=== PATIENT | female | born 1985 | race Caucasian/White ===

== ENCOUNTER → 2016-08-09 | Outpatient (CLI) | payer OTHER ==
--- NOTE | 2016-08-09 10:09 | US ---
EXAMINATION TYPE: US thyroid st tissue head/neck DATE OF EXAM: 08/09/2016 9:59 AM COMPARISON: NONE CLINICAL HISTORY: Pt states enlarged thyroid on Dr's examination GLAND SIZE: Right Lobe: 2.5 x 0.9 x 1.3 cm Overall Parenchyma: Slightly heterogenous Left Lobe: 2.6 x 0.7 x 1.0 cm Overall Parenchyma: Slightly heterogeneous Isthmus Thickness: 0.2 cm NODULES RIGHT: # of nodules measured on right: 0 LEFT: # of nodules measured on left: 0 ISTHMUS: # of nodules measured in the isthmus: 0 TECHNOLOGIST IMPRESSION: Bilateral neck scanned, no abnormal lymphadenopathy noted. Bilateral thyroid small in size and heterogeneous with no definite nodules visualized IMPRESSION: Thyroid gland is actually small in size, no worrisome solid or cystic nodules are identified chica pete
== END | disposition home or self-care (01) ==
LOC: RADUSWWP 09:45
PROVIDERS: ATTEND Family Medicine
DX: R94.6 Abnormal results of thyroid function studies (principal)
CPT/HCPCS: 76536

== ENCOUNTER → 2017-11-06 | Outpatient (CLI) | payer SELFPAY ==
--- NOTE | 2017-11-06 11:49 | MM ---
Reason for exam: clinical finding. Baseline mammogram. Indicated problem(s): palpable abnormality in the right breast. Physical Findings: Nurse did not find any significant physical abnormalities on exam. MG 3D Diag Mammo W/Cad SHERRIE Bilateral CC and MLO view(s) were taken. There are scattered fibroglandular densities. There is no discrete abnormality including area of concern. These results were verbally communicated with the patient and result sheet given to the patient on 11/06/17. ASSESSMENT: Negative, BI-RAD 1 RECOMMENDATION: Ultrasound of the right breast.
--- NOTE | 2017-11-06 11:50 | USB ---
Reason for exam: clinical finding. US Breast RT Right breast ultrasound includes all four quadrants, the retroareolar region and axilla. Finding demonstrates no cystic or solid lesion seen. These results were verbally communicated with the patient and result sheet given to the patient on 11/06/17. ASSESSMENT: Negative, BI-RAD 1 RECOMMENDATION: Routine screening mammogram of both breasts at age 39. Manage patient on a clinical basis.
== END | disposition home or self-care (01) ==
LOC: RADMAMWWP 08:46
PROVIDERS: ATTEND Family Medicine
DX: N64.4 Mastodynia (principal)
CPT/HCPCS: 77066; 76641; G0279

== ENCOUNTER → 2018-01-23 | Outpatient (CLI) | payer OTHER ==
--- NOTE | 2018-01-23 11:34 | XR ---
EXAMINATION TYPE: XR hand limited bilateral DATE OF EXAM: 01/23/2018 CLINICAL HISTORY: Pain TECHNIQUE: Frontal, lateral and oblique images of the bilateral hands are obtained. COMPARISON: None. FINDINGS: There is no acute fracture/dislocation evident. The joint spaces in the bilateral hands a ppear within normal limits. The overlying soft tissue appears unremarkable. IMPRESSION: There is no acute fracture or dislocation.
== END | disposition home or self-care (01) ==
LOC: RADXRMAIN 11:04
PROVIDERS: ATTEND Family Medicine
DX: M79.641 Pain in right hand (principal); M79.642 Pain in left hand

== ENCOUNTER → 2018-06-04 | Outpatient (CLI) | payer OTHER ==
[~2018-06-04] MED LIST: TUBERCULIN PPD (SKIN TEST) 5 UNIT/0.1 ML (MDV) VIAL INTRADERMA NR
[2018-06-04 11:18] VITALS: BP 115/96; PULSE 79; RESP 18; TEMP 97.6
== END ==
LOC: PROCWHC3 10:40
PROVIDERS: ATTEND Internal Medicine Rheumatology
DX: M05.79 Rheumatoid arthritis with rheumatoid factor of multiple sites without organ or systems involvement (principal)
CPT/HCPCS: 86580

== ENCOUNTER → 2018-06-04 | Outpatient (CLI) | payer OTHER ==
[2018-06-04 10:18] LABS: Basophils % (A) 0 %; Eosinophils # (A) 0.1 k/uL (0-0.7); Eosinophils % (A) 2 %; HCT 34.1 % (34.0-46.0); HGB 10.7 gm/dL (11.4-16.0); Hypochromasia Slight; Lymphocytes % (A) 18 %; MCH 26.7 pg (25.0-35.0); MCHC 31.4 g/dL (31.0-37.0); MCV 85.2 fL (80.0-100.0); Mean Platelet Volume 7.3; Monocytes # (A) 0.4 k/uL (0-1.0); Monocytes % (A) 7 %; Neutrophils % (A) 72 %; Platelet Count 263 k/uL (150-450); RDW 15.7 % (11.5-15.5); WBC 5.5 k/uL (3.8-10.6)
[2018-06-04 16:31] LABS: Albumin 4.1 g/dL (3.80-4.90); Albumin/Globulin Ratio 1.71 (1.20-2.10); Anion Gap 4.3 mmol/L (4.00-12.00); Calcium 8.9 mg/dL (8.7-10.3); Carbon Dioxide 23.7 mmol/L (21.6-31.8); Globulin 2.4 g/dL (2.1-3.7); Potassium 4.3 mmol/L (3.5-5.5); Total Bilirubin 0.2 mg/dL (0.2-1.2); Total Protein 6.5 g/dL (6.2-8.2); Uric Acid 4.2 mg/dL (2.9-7.7)
[2018-06-04 16:32] LABS: Thyroid Peroxidase Antibodies 40.3 U/mL (0.0-60.0); Vitamin D 25 Hydroxy 20.1 ng/mL (30.0-100.0)
[2018-06-04 16:54] LABS: T4, Free (Free Thyroxine) 0.7 ng/dL (0.80-1.80)
[2018-06-04 18:26] LABS: Hemoglobin A1C 5.6 % (4.0-6.0)
[2018-06-05 10:58] LABS: Casein IgE Class CLASS 0
== END ==
LOC: LABWHC1 08:50
PROVIDERS: ATTEND Family Medicine
DX: E03.9 Hypothyroidism, unspecified (principal); M79.7 Fibromyalgia; M12.89 Other specific arthropathies, not elsewhere classified, multiple sites; E55.9 Vitamin D deficiency, unspecified; E07.9 Disorder of thyroid, unspecified; R53.82 Chronic fatigue, unspecified; R73.01 Impaired fasting glucose
CPT/HCPCS: 36415; 80053; 82306; 82465; 82728; 83036; 84439; 84481; 84482; 84550; 85025; 86001; 86003; 86376; 86738; 86800

== ENCOUNTER → 2018-12-15 | Outpatient (CLI) | payer OTHER | END | disposition home or self-care (01) | LOC: LABWHC1 07:59 | PROVIDERS: ATTEND Family Medicine | DX: E27.1 Primary adrenocortical insufficiency (principal) | CPT/HCPCS: 36415; 82024; 82533 ==

== ENCOUNTER 2019-08-23 18:56 | Emergency (ER) | payer OTHER ==
[2019-08-23 19:02] VITALS: TEMP 97.9
[2019-08-23] MEDS ORDERED: SODIUM CHLORIDE 0.9% 1,000 ML IV STA (19:10)
[2019-08-23] MEDS ORDERED: MECLIZINE 12.5 MG TAB PO STA (19:10)
[2019-08-23] MEDS ORDERED: ONDANSETRON 4 MG/2 ML VIAL IVP STA (19:10)
[2019-08-23 19:41] LABS: Basophils # (A) 0.1 k/uL (0-0.2); Basophils % (A) 2 %; Eosinophils % (A) 1 %; HCT 36.5 % (34.0-46.0); HGB 12.2 gm/dL (11.4-16.0); Lymphocytes # (A) 0.2 k/uL (1.0-4.8); Lymphocytes % (A) 8 %; MCH 29.5 pg (25.0-35.0); MCHC 33.4 g/dL (31.0-37.0); MCV 88.2 fL (80.0-100.0); Mean Platelet Volume 8.1; Monocytes # (A) 0.4 k/uL (0-1.0); Monocytes % (A) 14 %; Neutrophils # (A) 2.1 k/uL (1.3-7.7); Neutrophils % (A) 72 %; Platelet Count 164 k/uL (150-450); RBC 4.14 m/uL (3.80-5.40); RDW 13.3 % (11.5-15.5); WBC 2.9 k/uL (3.8-10.6)
[2019-08-23 19:45] LABS: Appearance,Urine Cloudy (Clear); Bilirubin,Urine Negative (Negative); Blood,Urine Negative (Negative); Color,Urine Yellow; Glucose,Urine (UA) Negative (Negative); Hyaline Casts,Urine 2 /lpf (0-2); Ketones,Urine Negative (Negative); Leukocyte Esterase,Urine Moderate (Negative); Mucus,Urine Many /hpf; Nitrite,Urine Negative (Negative); PH, Urine 5.5 (5.0-8.0); Protein,Urine 1+ (Negative); RBC,Urine 4 /hpf (0-5); Specific Gravity,Urine 1.032 (1.001-1.035); Squamous Epithelial Cell,Urine 19 /hpf (0-4); Urobilinogen,Urine <2.0 mg/dL (<2.0); WBC,Urine 4 /hpf (0-5)
--- NOTE | 2019-08-23 19:48 | XR ---
EXAMINATION TYPE: XR chest 2V DATE OF EXAM: 08/23/2019 COMPARISON: NONE HISTORY: Chest pain TECHNIQUE: 2 views FINDINGS: Heart and mediastinum are normal. Lungs are clear. Diaphragm is normal. Bony thorax appears normal. IMPRESSION: Normal chest.
[2019-08-23 19:49] LABS: ALT 17 U/L (4-34); AST 23 U/L (14-36); African American GFR (CKD) >90 (>60 ml/min/1.73 sqM); Alkaline Phosphatase 99 U/L (38-126); Anion Gap 9 mmol/L; Blood Urea Nitrogen 15 mg/dL (7-17); Carbon Dioxide 20 mmol/L (22-30); Chloride 108 mmol/L (98-107); Glucose 100 mg/dL (74-99); Non-African American GFR(CKD) >90 (>60 ml/min/1.73 sqM); Potassium 4.3 mmol/L (3.5-5.1); Sodium 137 mmol/L (137-145); Total Bilirubin 0.3 mg/dL (0.2-1.3); Total Protein 7.2 g/dL (6.3-8.2)
[2019-08-23] MEDS ORDERED: NITROFURANTOIN MONOHYD/M-CRYST 100 MG CAP PO STA (20:02)
[2019-08-23 20:03] LABS: Amphetamine Screen,Urine Not Detected (NotDetected); Barbiturate Screen,Urine Not Detected (NotDetected); Benzodiazepines Screen,Urine Not Detected (NotDetected); Cocaine Screen,Urine Not Detected (NotDetected); Methadone Screen, Urine Not Detected (NotDetected); Opiate Screen,Urine Not Detected (NotDetected); Oxycodone Screen, Urine Not Detected (NotDetected); Phencyclidine Screen,Urine Not Detected (NotDetected); Tricyclic Antidepressant,Urine Not Detected (NotDetected); Urn Cannabinoid Scrn Detected (NotDetected)
--- NOTE | 2019-08-23 20:04 | ED ---
General Adult HPI - General Chief complaint: Dizziness Stated complaint: Dizzy, tightness in throat Time Seen by Provider: 08/23/19 19:03 Source: patient Mode of arrival: ambulatory Limitations: no limitations - History of Present Illness Initial comments: Patient states that she is not feeling well. She has no chest pain. She does have a cough. She has no focal weakness. She has no lightheadedness. She has no dizziness in terms a passing out, but does feel a little lightheaded. She has no change in vision or hearing. She has no pain or swelling in the arms or legs. She has no palpitations. She has had sick contacts at home. She has taken no medicine for her symptoms. She wasn't doing anything when she began to feel this way. - Related Data Home Medications Medication Instructions Recorded Confirmed Baclofen [Lioresal] 10 mg PO DAILY 06/04/18 06/04/18 Citalopram Hydrobromide [CeleXA] 60 mg PO DAILY 06/04/18 06/04/18 Ferrous Sulfate [Feosol] 325 mg PO BID 06/04/18 06/04/18 Folic Acid PO DAILY 06/04/18 HYDROcodone/APAP 5-325MG [Luckey 1 tab PO BID 06/04/18 06/04/18 5-325] Hydroxychloroquine Sulfate 400 mg PO DAILY 06/04/18 06/04/18 [Plaquenil] Meloxicam [Mobic] 15 mg PO DAILY 06/04/18 06/04/18 Methotrexate 0.8 ml INJ WEEKLY 06/04/18 06/04/18 Nadolol [Corgard] 10 mg PO DAILY 06/04/18 06/04/18 Thyroid,Pork [[employer] Thyroid 120] 90 mg PO DAILY 06/04/18 06/04/18 predniSONE 5 mg PO DAILY 06/04/18 06/04/18 Previous Rx's Medication Instructions Recorded Nitrofurantoin Monohyd/M-Cryst 100 mg PO Q12HR #14 cap 08/23/19 [Macrobid] Allergies Allergy/AdvReac Type Severity Reaction Status Date / Time No Known Allergies Allergy Verified 08/23/19 18:58 Review of Systems ROS Statement: Those systems with pertinent positive or pertinent negative responses have been documented in the HPI. ROS Other: All systems not noted in ROS Statement are negative. Past Medical History Past Medical History: Rheumatoid Arthritis (RA), Thyroid Disorder Additional Past Medical History / Comment(s): HX PALPITATIONS/AND 'SKIPS BEATS' History of Any Multi-Drug Resistant Organisms: None Reported Additional Past Surgical History / Comment(s): HX WISDOM TEETH REMOVED Past Psychological History: Anxiety, Depression Smoking Status: Never smoker Past Alcohol Use History: Rare Past Drug Use History: Marijuana - Past Family History Father Family Medical History: AFIB, Thyroid Disorder Mother Family Medical History: Thyroid Disorder General Exam Limitations: no limitations General appearance: alert, in no apparent distress Head exam: Present: atraumatic, normocephalic, normal inspection Eye exam: Present: normal appearance, PERRL, EOMI. Absent: scleral icterus, conjunctival injection, periorbital swelling ENT exam: Present: normal exam, mucous membranes moist Neck exam: Present: normal inspection. Absent: tenderness, meningismus, lymphadenopathy Respiratory exam: Present: normal lung sounds bilaterally. Absent: respiratory distress, wheezes, rales, rhonchi, stridor Cardiovascular Exam: Present: regular rate, normal rhythm, normal heart sounds. Absent: systolic murmur, diastolic murmur, rubs, gallop, clicks GI/Abdominal exam: Present: soft, normal bowel sounds. Absent: distended, ten derness, guarding, rebound, rigid Extremities exam: Present: normal inspection, full ROM, normal capillary refill. Absent: tenderness, pedal edema, joint swelling, calf tenderness Back exam: Present: normal inspection Neurological exam: Present: alert, oriented X3, CN II-XII intact Psychiatric exam: Present: normal affect, normal mood Skin exam: Present: warm, dry, intact, normal color. Absent: rash Course Vital Signs 08/23/19 18:59 Temperature 97.9 F Pulse Rate 122 H Respiratory 18 Rate Blood Pressure 110/65 O2 Sat by Pulse 98 Oximetry EKG Findings - EKG Comments: EKG Findings:: Twelve-lead EKG shows ventricular rate 105 bpm, normal MN interval and QRS complex is, no ST elevation or depression, interpreted by me as normal sinus rhythm. Medical Decision Making - Medical Decision Making Patient presented generally not feeling well. Her physical exam is unremarka ble. Her laboratory studies are within acceptable limits. She is feeling much better after IV fluids. Urinalysis was concerning for UTI, so she is started on antibiotic. Otherwise she is feeling much better and is stable for discharge. - Lab Data Result diagrams: 08/23/19 19:24 08/23/19 19:24 Lab Results 08/23/19 08/23/19 08/23/19 Range/Units 19:24 19:24 19:24 WBC 2.9 L (3.8-10.6) k/uL RBC 4.14 (3.80-5.40) m/uL Hgb 12.2 (11.4-16.0) gm/dL Hct 36.5 (34.0-46.0) % MCV 88.2 (80.0-100.0) fL MCH 29.5 (25.0-35.0) pg MCHC 33.4 (31.0-37.0) g/dL RDW 13.3 (11.5-15.5) % Plt Count 164 (150-450) k/uL Neutrophils % 72 % Lymphocytes % 8 % Monocytes % 14 % Eosinophils % 1 % Basophils % 2 % Neutrophils # 2.1 (1.3-7.7) k/uL Lymphocytes # 0.2 L (1.0-4.8) k/uL Monocytes # 0.4 (0-1.0) k/uL Eosinophils # 0.0 (0-0.7) k/uL Basophils # 0.1 (0-0.2) k/uL Sodium 137 (137-145) mmol/L Potassium 4.3 (3.5-5.1) mmol/L Chloride 108 H (98-107) mmol/L Carbon Dioxide 20 L (22-30) mmol/L Anion Gap 9 mmol/L BUN 15 (7-17) mg/dL Creatinine 0.67 (0.52-1.04) mg/dL Est GFR (CKD-EPI)AfAm >90 (>60 ml/min/1.73 sqM) Est GFR (CKD-EPI)NonAf >90 (>60 ml/min/1.73 sqM) Glucose 100 H (74-99) mg/dL Calcium 9.0 (8.4-10.2) mg/dL Total Bilirubin 0.3 (0.2-1.3) mg/dL AST 23 (14-36) U/L ALT 17 (4-34) U/L Alkaline Phosphatase 99 (38-126) U/L Total Protein 7.2 (6.3-8.2) g/dL Albumin 4.0 (3.5-5.0) g/dL Urine Color Urine Appearance (Clear) Urine pH (5.0-8.0) Ur Specific [place] (1.001-1.035) Urine Protein (Negative) Urine Glucose (UA) (Negative) Urine Ketones (Negative) Urine Blood (Negative) Urine Nitrite (Negative) Urine Bilirubin (Negative) Urine Urobilinogen (<2.0) mg/dL Ur Leukocyte Esterase (Negative) Urine RBC (0-5) /hpf Urine WBC (0-5) /hpf Ur Squamous Epith Cells (0-4) /hpf Hyaline Casts (0-2) /lpf Urine Mucus (None) /hpf Urine HCG, Qual Not Detected (Not Detectd) Influenza Type A RNA (Not Detectd) Influenza Type B (PCR) (Not Detectd) 08/23/19 08/23/19 Range/Units 19:24 19:24 WBC (3.8-10.6) k/uL RBC (3.80-5.40) m/uL Hgb (11.4-16.0) gm/dL Hct (34.0-46.0) % MCV (80.0-100.0) fL MCH (25.0-35.0) pg MCHC (31.0-37.0) g/dL RDW (11.5-15.5) % Plt Count (150-450) k/uL Neutrophils % % Lymphocytes % % Monocytes % % Eosinophils % % Basophils % % Neutrophils # (1.3-7.7) k/uL Lymphocytes # (1.0-4.8) k/uL Monocytes # (0-1.0) k/uL Eosinophils # (0-0.7) k/uL Basophils # (0-0.2) k/uL Sodium (137-145) mmol/L Potassium (3.5-5.1) mmol/L Chloride (98-107) mmol/L Carbon Dioxide (22-30) mmol/L Anion Gap mmol/L BUN (7-17) mg/dL Creatinine (0.52-1.04) mg/dL Est GFR (CKD-EPI)AfAm (>60 ml/min/1.73 sqM) Est GFR (CKD-EPI)NonAf (>60 ml/min/1.73 sqM) Glucose (74-99) mg/dL Calcium (8.4-10.2) mg/dL Total Bilirubin (0.2-1.3) mg/dL AST (14-36) U/L ALT (4-34) U/L Alkaline Phosphatase (38-126) U/L Total Protein (6.3-8.2) g/dL Albumin (3.5-5.0) g/dL Urine Color Yellow Urine Appearance Cloudy H (Clear) Urine pH 5.5 (5.0-8.0) Ur Specific [place] 1.032 (1.001-1.035) Urine Protein 1+ H (Negative) Urine Glucose (UA) Negative (Negative) Urine Ketones Negative (Negative) Urine Blood Negative (Negative) Urine Nitrite Negative (Negative) Urine Bilirubin Negative (Negative) Urine Urobilinogen <2.0 (<2.0) mg/dL Ur Leukocyte Esterase Moderate H (Negative) Urine RBC 4 (0-5) /hpf Urine WBC 4 (0-5) /hpf Ur Squamous Epith Cells 19 H (0-4) /hpf Hyaline Casts 2 (0-2) /lpf Urine Mucus Many H (None) /hpf Urine HCG, Qual (Not Detectd) Influenza Type A RNA Not Detected (Not Detectd) Influenza Type B (PCR) Not Detected (Not Detectd) Disposition Clinical Impression: UTI (urinary tract infection) Disposition: HOME SELF-CARE Condition: Good Instructions (If sedation given, give patient instructions): Dizziness (ED), Urinary Tract Infection in Women (DC) Prescriptions: Nitrofurantoin Monohyd/M-Cryst [Macrobid] 100 mg PO Q12HR #14 cap Is patient prescribed a controlled substance at d/c from ED?: No Referrals: Aggie Byers DO [Primary Care Provider] - 1-2 days
[2019-08-23 20:32] VITALS: BP 100/65; PULSE 92; RESP 16
== END 2019-08-23 20:34 | disposition home or self-care (01) ==
LOC: EC 18:56
DX: N39.0 Urinary tract infection, site not specified (principal); R42 Dizziness and giddiness; R09.89 Other specified symptoms and signs involving the circulatory and respiratory systems; R05 Cough; M06.9 Rheumatoid arthritis, unspecified; E07.9 Disorder of thyroid, unspecified; F41.9 Anxiety disorder, unspecified; F32.9 Major depressive disorder, single episode, unspecified; Z79.891 Long term (current) use of opiate analgesic; Z79.1 Long term (current) use of non-steroidal anti-inflammatories (NSAID); Z79.52 Long term (current) use of systemic steroids; Z79.899 Other long term (current) drug therapy
CPT/HCPCS: 99284 ×2; 96374 ×2; 96361 ×2; 36415; 93005; 80053; 84484; 85025; 81001; 81025; 80306; 87502; 71046; J2405

== ENCOUNTER 2023-06-05 19:44 | Outpatient (CLI) | payer MEDICARE, OTHER ==
--- NOTE | 2023-06-06 23:58 | SLS ---
SLEEP STUDY STUDY PERFORMED: This is a polysomnography report. HISTORY OF PRESENT ILLNESS: This patient has issues with chronic fatigue and this has been attributed to medical problems including comorbidities such as Lyme disease and generalized anxiety disorder and depression and history of arthritis. She also has other issues with hypothyroidism that has been adequately treated in the past. She was referred to me to be evaluated for sleep breathing disorder. Her other comorbid conditions include RA, ADD and ADHD. PERTINENT PHYSICAL FINDINGS: Height is 5 feet 3 inches, weight is 158, and BMI 28.0. TECHNICAL DESCRIPTION: The sleep evaluation of the patient consisted of clinical polysomnography, nocturnal respiratory battery, left and right anterior tibialis surface electromyography. The standard montage for the clinical polysomnography included the EEG, EOG, EMG, and EKG. Respiratory battery included measurements of nasal/buccal airflow, thoracic, and/or abdominal effort and intercostal surface EMG. Nocturnal oxyhemoglobin saturations were obtained by finger oximetry. Digital video and audio monitoring were done throughout the entire night to check or parasomnias. Is for polysomnography report. STUDY OVERVIEW: Total time in bed was 400 minutes. Total sleep time was 365.5 minutes. The sleep efficiency was calculated to be at 91.1%. Latency to sleep onset is 7.5 minutes and the latency to REM sleep was 18.5 minutes. The sleep architecture was characterized by 6.2% stage I, 67.7% stage II, 0.4% stage III, and 25.8% REM sleep. The wake after sleep onset was 27.5 minutes. SLEEP CONTINUITY SUMMARY: The patient had a total of 55 arousals, index of 9.0. Respiratory arousal index was 0.0. RESPIRATORY ANALYSIS: The patient had a total of 0 obstructive apneas, 0 mixed apneas, 0 central apneas, 0 obstructive hypopneas. AHI was 0. OXYGENATION ANALYSIS: The patient's lowest oxygen saturation was 93%. The minimum pulse ox that she was on 93%. The patient had no oxygen saturations below 93%. CARDIAC SUMMARY: Average heart rate was 77, minimum heart rate was 83, maximum heart rate of 89 and rhythm was sinus. PERIODIC LIMB MOVEMENT ACTIVITY: The patient had a total of 227 periodic limb movement activities with an index of 37.3. There was only 1 periodic limb movement activity with arousals with an index of 0.8. ASSESSMENT: 1. No evidence of any sleep breathing disorder and the patient's AHI is at 0. 2. No evidence of any nocturnal oxygen desaturation. 3. Adequate sleep architecture. 4. Adequate sleep efficiency calculated to be at 91%. 5. Periodic limb movement activity [id number], not causing any significant sleep fragmentation. 6. Rheumatoid arthritis, maintained on methotrexate, Enbrel and Plaquenil. 7. Chronic fatigue. 8. History of Lyme disease. 9. Chronic anxiety and depression. 10.History of attention deficit disorder/attention deficit and hyperactivity disorders. PLAN: This is a negative sleep study. Her sleep architecture is good. Sleep efficiency is good. Sleep maintenance is good and there is no evidence of any sleep breathing disorder. Continue treating comorbidities. Her chronic fatigue is not related to any sleep disorder. The patient will be referred back to her primary care physician. MMODL / IJN: [id number] /
== END 2023-06-06 05:20 | disposition home or self-care (01) ==
LOC: 3 N SLEEP 19:44
PROVIDERS: ATTEND Internal Medicine Critical Care Medicine
DX: G47.61 Periodic limb movement disorder (principal); M06.9 Rheumatoid arthritis, unspecified; R53.82 Chronic fatigue, unspecified; F32.A Depression, unspecified; F41.9 Anxiety disorder, unspecified; F98.8 Other specified behavioral and emotional disorders with onset usually occurring in childhood and adolescence; F90.9 Attention-deficit hyperactivity disorder, unspecified type; Z86.19 Personal history of other infectious and parasitic diseases
CPT/HCPCS: 95810